=== PATIENT | male | born 1995 | race Asian ===

== ENCOUNTER 2017-07-25 17:15 | Emergency (ER) | payer MEDICAID ==
[~2017-07-25] VITALS: Ht 170.2 cm; Wt 54.4 kg
[~2017-07-25 17:15] MED LIST: DEPAKOTE125 MG PO; KLONOPIN2 MG PO
[2017-07-25 18:03] LABS: BASOPHILS % (AUTO) 1.8 % (0.0-2.0); EOSINOPHILS % (AUTO) 1.5 % (0.0-3.0); HEMATOCRIT 43.2 % (42.0-52.0); HEMOGLOBIN 13.9 G/DL (14.2-18.0); MEAN CORPUSCULAR VOLUME 96 FL (80-99); MONOCYTES % (AUTO) 8.5 % (1.0-10.0); NEUTROPHILS % (AUTO) 55.2 % (45.0-75.0); PLATELET COUNT 201 K/UL (150-450); RED BLOOD COUNT 4.49 M/UL (4.70-6.10); RED CELL DISTRIBUTION WIDTH 11.8 % (11.6-14.8)
[2017-07-25 18:09] LABS: ANION GAP 10 mmol/L (5-15); BLOOD UREA NITROGEN 14 mg/dL (7-18); CALCIUM 7.7 MG/DL (8.5-10.1); CARBON DIOXIDE 27 MMOL/L (21-32); CHLORIDE 106 MMOL/L (98-107); CREATININE 0.8 MG/DL (0.55-1.30); POTASSIUM 3.5 MMOL/L (3.5-5.1); SODIUM 143 MMOL/L (136-145)
[2017-07-25 18:14] LABS: ALANINE AMINOTRANSFERASE 48 U/L (12-78); ALBUMIN 3.6 G/DL (3.4-5.0); ALBUMIN/GLOBULIN RATIO 1.1 (1.0-2.7); ALKALINE PHOSPHATASE 92 U/L (46-116); ASPARTATE AMINO TRANSFERASE 25 U/L (15-37); BILIRUBIN,TOTAL 0.4 MG/DL (0.2-1.0)
[2017-07-25 19:00] VITALS: BP 120/72
--- NOTE | 2017-07-25 22:45 | Emergency Room Report ---
History of Present Illness General Chief Complaint: General Complaint Source: Patient, Family Member - mother, EMS Present Illness HPI The patient is a 22-year-old male with a stated history of depression presenting for thoughts of self harm. He is brought in by police department. They did not put him on a psychiatric hold. He states that he was having sat thoughts this afternoon and scratched his left forearm. He denies intent or suicidal ideation. He denies any pain. He states that he has a psychiatrist which he has not seen recently.He takes Clonopin and Depakote daily. He denies other symptoms including dizziness, blurred vision, chest pain, shortness of breath, suicidal ideation, homicidal ideation Allergies: Coded Allergies: No Known Allergies (Unverified , 06/24/12) Patient History Past Medical History: see triage record, psych hx Pertinent Family History: none Reviewed Nursing Documentation: PMH: Agreed, PSxH: Agreed Nursing Documentation-PMH Hx Asthma: Yes History Of Psychiatric Problem: Yes - bi-polar,depression,anxiety Review of Systems All Other Systems: negative except mentioned in HPI Physical Exam Vital Signs Date Time Temp Pulse Resp B/P (MAP) Pulse Ox O2 Delivery O2 Flow Rate FiO2 07/25/17 17:14 97.9 88 16 118/65 Room Air 07/25/17 19:00 97 Sp02 EP Interpretation: reviewed, normal General Appearance: no apparent distress, alert, GCS 15, non-toxic Head: normocephalic, atraumatic Eyes: bilateral eye normal inspection, bilateral eye PERRL ENT: hearing grossly normal, normal pharynx, no angioedema, normal voice Neck: full range of motion, supple/symm/no masses Respiratory: chest non-tender, lungs clear, normal breath sounds, speaking full sentences Cardiovascular #1: regular rate, rhythm, no edema Musculoskeletal: back normal, gait/station normal, normal range of motion Neurologic: alert, oriented x3, responsive, motor strength/tone normal, sensory intact, speech normal Psychiatric: judgement/insight normal, memory normal, mood/affect normal, no suicidal/homicidal ideation Suicide Risk Assessment: Suicidal Ideation: No Had intent to initiate attempt: No Pt's plan for suicide attempt: No Has means to complete attempt: No Skin: normal color, no rash, warm/dry, well hydrated, abrasions - L forearm Medical Decision Making PA Attestation Dr. Young is my supervising physician. Patient management was discussed with my supervising physician Diagnostic Impression: Primary Impression: Acute anxiety ER Course The patient is a 22-year-old male with a stated history of depression presenting for thoughts of self harm Differential diagnoses considered but not limited to suicidal ideation, homicidal ideation, depression, anxiety PE: NAD Patient denies suicidal ideation. He is relaxing on a chair. No distress. He is asking for food Blood work is unremarkable. Patient is medically cleared. His mother has now arrived states that the patient will be returning with her at home which is a safe area. He states that he would like to go home. I told them both the patient need to see his psychiatrist. Laboratory Tests Test 07/25/17 17:10 07/25/17 17:40 Urine Opiates Screen Negative (NEGATIVE) Urine Barbiturates Screen Negative (NEGATIVE) Phencyclidine (PCP) Screen Negative (NEGATIVE) Urine Amphetamines Screen Negative (NEGATIVE) Urine Benzodiazepines Screen Negative (NEGATIVE) Urine Cocaine Screen Negative (NEGATIVE) Urine Marijuana (THC) Screen Negative (NEGATIVE) White Blood Count 5.0 K/UL (4.8-10.8) Red Blood Count 4.49 M/UL (4.70-6.10) L Hemoglobin 13.9 G/DL (14.2-18.0) L Hematocrit 43.2 % (42.0-52.0) Mean Corpuscular Volume 96 FL (80-99) Mean Corpuscular Hemoglobin 30.9 PG (27.0-31.0) Mean Corpuscular Hemoglobin Concent 32.1 G/DL (32.0-36.0) Red Cell Distribution Width 11.8 % (11.6-14.8) Platelet Count 201 K/UL (150-450) Mean Platelet Volume 7.2 FL (6.5-10.1) Neutrophils (%) (Auto) 55.2 % (45.0-75.0) Lymphocytes (%) (Auto) 33.0 % (20.0-45.0) Monocytes (%) (Auto) 8.5 % (1.0-10.0) Eosinophils (%) (Auto) 1.5 % (0.0-3.0) Basophils (%) (Auto) 1.8 % (0.0-2.0) Sodium Level 143 MMOL/L (136-145) Potassium Level 3.5 MMOL/L (3.5-5.1) Chloride Level 106 MMOL/L (98-107) Carbon Dioxide Level 27 MMOL/L (21-32) Anion Gap 10 mmol/L (5-15) Blood Urea Nitrogen 14 mg/dL (7-18) Creatinine 0.8 MG/DL (0.55-1.30) Estimate Glomerular Filtration Rate > 60 mL/min (>60) Glucose Level 106 MG/DL (74-106) Calcium Level 7.7 MG/DL (8.5-10.1) L Total Bilirubin 0.4 MG/DL (0.2-1.0) Aspartate Amino Transferase (AST) 25 U/L (15-37) Alanine Aminotransferase (ALT) 48 U/L (12-78) Alkaline Phosphatase 92 U/L (46-116) Total Protein 6.8 G/DL (6.4-8.2) Albumin 3.6 G/DL (3.4-5.0) Globulin 3.2 g/dL Albumin/Globulin Ratio 1.1 (1.0-2.7) Salicylates Level 0.8 ug/mL (2.8-20) L Acetaminophen Level < 2 MCG/ML (10-30) L Serum Alcohol < 3 mg/dL Lab Results Impression unremarkable Last Vital Signs Date Time Temp Pulse Resp B/P (MAP) Pulse Ox O2 Delivery O2 Flow Rate FiO2 07/25/17 21:48 97.9 106 18 120/72 97 Room Air Status: improved Disposition: HOME, SELF-CARE Condition: Improved Referrals: [facility],REFERR[facility] (PCP) Patient Instructions: Panic Attacks Additional Instructions: I discussed my findings with the patient. All questions and concerns have been answered. Treatment and medication compliance have been addressed. Please followup with psychiatry as soon as possible. Return to ED if symptoms worsen, new symptoms arise, or if needed for any reason. Patient verbalized understanding of discharge instructions. GERBER SOUZA Jul 25, 2017 22:45
== END 2017-07-25 21:55 | disposition home or self-care (01) ==
LOC: EDBD 17:15 → EMR 18:00
DX: F41.9 Anxiety disorder, unspecified (principal); S50.812A Abrasion of left forearm, initial encounter; X78.9XXA Intentional self-harm by unspecified sharp object, initial encounter; Y92.9 Unspecified place or not applicable; F32.9 Major depressive disorder, single episode, unspecified; J45.909 Unspecified asthma, uncomplicated
CPT/HCPCS: 36415; 80053; 80307; 80329; 85025; 99284

== ENCOUNTER 2017-08-11 15:57 | Inpatient (IN) | payer MEDICAID ==
[2017-08-11] VITALS (11 sets, daily range): BP systolic 91–135; BP diastolic 36–80
[~2017-08-11] VITALS: Ht 170.2 cm; Wt 57.2 kg
[2017-08-11] MEDS ORDERED: Oxymetazoline 0.05% Na Spray 30ml NASAL ONE ×2 (16:05→16:15)
--- NOTE | 2017-08-11 16:27 | Emergency Room Report ---
History of Present Illness General Chief Complaint: Overdose Source: Family Member Present Illness HPI Patient is a 22-year-old male who presented after overdose on multiple psychiatric medications. Patient stated that he had taken overdose of mirtazapine as well as Depakote. The ingestion occurred approximately 30-40 minutes prior to arrival. The patient had prior history of similar episodes which eventually required intubation and ICU admission. The patient did not vomit prior to arrival. The patient presented with family member. Patient previous history of bipolar disorder Allergies: Coded Allergies: No Known Allergies (Unverified , 08/11/17) Patient History Reviewed Nursing Documentation: PMH: Agreed, PSxH: Agreed Nursing Documentation-PMH History Of Psychiatric Problem: Yes - schizoprenia Physical Exam Vital Signs Date Time Temp Pulse Resp B/P (MAP) Pulse Ox O2 Delivery O2 Flow Rate FiO2 08/11/17 15:58 97.3 71 16 122/72 100 Room Air Sp02 EP Interpretation: reviewed, normal General Appearance: normal inspection, well appearing, no apparent distress, alert, GCS 15, non-toxic Head: atraumatic ENT: normal ENT inspection, hearing grossly normal, normal voice Neck: normal inspection, full range of motion, supple, no bony tend Respiratory: normal inspection, lungs clear, normal breath sounds, no respiratory distress, no retraction, no wheezing Cardiovascular #1: regular rate, rhythm, no edema Gastrointestinal: normal inspection, normal bowel sounds, non tender, soft, no guarding, no hernia Genitourinary: no CVA tenderness Musculoskeletal: normal inspection, back normal, normal range of motion Neurologic: normal inspection, alert, oriented x3, responsive, plumber's assistant III-XII nml as tested, speech normal Psychiatric: normal inspection, mood/affect normal, anxious Skin: normal inspection, normal color, no rash Procedures Critical Care Time Critical Care Time Patient had a critical medical condition which untreated could potentially result in life or limb threatening injury. Total critical care time excluding procedures approximately 45 minutes. Medical Decision Making Diagnostic Impression: Primary Impression: Drug overdose Additional Impression: Bipolar disorder ER Course Patient presented after overdose. The differential diagnosis included wasn't limited to toxic ingestion, suicidal attempt, liver injury, coingestions among others.Because of complexity of patient's case laboratory testing and imaging studies were ordered. The patient was noted to have recent ingestion. And G- tube was placed and patient was lavaged with return of some pill fragments. The patient was given activated charcoal. He was started on GoLYTELY via NG tube. The patient was noted to have elevated Depakote level. The patient was noted to have previous suicide attempt. EKG interpreted by me showed sinus rhythm with rate of [address] or T wave changes. Poison control was contacted to assist in management of patient's arrival. They recommended repeat ammonia levels every 4 hours as well as further monitoring and supportive care. Dr. Kee was contacted for inpatient management due to complexity of medical condition. Labs Test 08/11/17 16:15 08/11/17 16:35 White Blood Count 6.0 K/UL (4.8-10.8) Red Blood Count 4.53 M/UL (4.70-6.10) Hemoglobin 14.5 G/DL (14.2-18.0) Hematocrit 43.5 % (42.0-52.0) Mean Corpuscular Volume 96 FL (80-99) Mean Corpuscular Hemoglobin 31.9 PG (27.0-31.0) Mean Corpuscular Hemoglobin Concent 33.3 G/DL (32.0-36.0) Red Cell Distribution Width 11.9 % (11.6-14.8) Platelet Count 190 K/UL (150-450) Mean Platelet Volume 9.0 FL (6.5-10.1) Neutrophils (%) (Auto) 48.5 % (45.0-75.0) Lymphocytes (%) (Auto) 38.7 % (20.0-45.0) Monocytes (%) (Auto) 9.5 % (1.0-10.0) Eosinophils (%) (Auto) 1.5 % (0.0-3.0) Basophils (%) (Auto) 1.8 % (0.0-2.0) Sodium Level 142 MMOL/L (136-145) Potassium Level 4.0 MMOL/L (3.5-5.1) Chloride Level 106 MMOL/L (98-107) Carbon Dioxide Level 25 MMOL/L (21-32) Anion Gap 11 mmol/L (5-15) Blood Urea Nitrogen 22 mg/dL (7-18) Creatinine 0.9 MG/DL (0.55-1.30) Estimat Glomerular Filtration Rate > 60 mL/min (>60) Glucose Level 92 MG/DL (74-106) Calcium Level 9.3 MG/DL (8.5-10.1) Total Bilirubin 0.2 MG/DL (0.2-1.0) Aspartate Amino Transf (AST/SGOT) 20 U/L (15-37) Alanine Aminotransferase (ALT/SGPT) 31 U/L (12-78) Alkaline Phosphatase 79 U/L (46-116) Ammonia 32 umol/L (11-32) Total Protein 6.5 G/DL (6.4-8.2) Albumin 3.6 G/DL (3.4-5.0) Globulin 2.9 g/dL Albumin/Globulin Ratio 1.2 (1.0-2.7) Salicylates Level 2.5 ug/mL (2.8-20) Acetaminophen Level < 10 MCG/ML (10-30) Valproic Acid (Depakene) Level 211 MCG/ML (50-100) Serum Alcohol < 3 mg/dL Urine Opiates Screen Negative (NEGATIVE) Urine Barbiturates Screen Negative (NEGATIVE) Phencyclidine (PCP) Screen Negative (NEGATIVE) Urine Amphetamines Screen Negative (NEGATIVE) Urine Benzodiazepines Screen Negative (NEGATIVE) Urine Cocaine Screen Negative (NEGATIVE) Urine Marijuana (THC) Screen Negative (NEGATIVE) EKG Diagnostic Results Rate: normal Rhythm: NSR ST Segments: no acute changes Rhythm Strip Diag. Results EP Interpretation: yes Rhythm: NSR, no PVC's, no ectopy Last Vital Signs Date Time Temp Pulse Resp B/P (MAP) Pulse Ox O2 Delivery O2 Flow Rate FiO2 08/11/17 15:58 97.3 71 16 122/72 100 Room Air Status: unchanged Disposition: ADMITTED INPATIENT Condition: Critical Referrals: NOT CHOSEN [facility]/,REFERRING (PCP) Blayne Morris Aug 11, 2017 16:27
[2017-08-11] MEDS ORDERED: Nulytely 4L NG ONE (16:30)
[2017-08-11] MEDS ORDERED: Activated Charcoal 50gm/240ml Btl ORAL ONE (16:30)
[2017-08-11] MEDS ORDERED: MIRTAZAPINE15 M3 ORAL (16:52)
[2017-08-11] MEDS ORDERED: DEPAKOTE ER500 MG ORAL (16:52)
[2017-08-11 16:58] LABS: ANION GAP 11 mmol/L (5-15); BLOOD UREA NITROGEN 22 mg/dL (7-18); CALCIUM 9.3 MG/DL (8.5-10.1); CARBON DIOXIDE 25 MMOL/L (21-32); CHLORIDE 106 MMOL/L (98-107); CREATININE 0.9 MG/DL (0.55-1.30); SODIUM 142 MMOL/L (136-145)
[2017-08-11] MEDS ORDERED: LORazepam Inj 2mg/ml 1ml IV ONE (17:00)
[2017-08-11 17:05] LABS: BASOPHILS % (AUTO) 1.8 % (0.0-2.0); EOSINOPHILS % (AUTO) 1.5 % (0.0-3.0); HEMATOCRIT 43.5 % (42.0-52.0); HEMOGLOBIN 14.5 G/DL (14.2-18.0); LYMPHOCYTES % (AUTO) 38.7 % (20.0-45.0); MEAN CORPUSCULAR VOLUME 96 FL (80-99); MONOCYTES % (AUTO) 9.5 % (1.0-10.0); NEUTROPHILS % (AUTO) 48.5 % (45.0-75.0); PLATELET COUNT 190 K/UL (150-450); RED BLOOD COUNT 4.53 M/UL (4.70-6.10); RED CELL DISTRIBUTION WIDTH 11.9 % (11.6-14.8)
[2017-08-11 17:12] LABS: ALANINE AMINOTRANSFERASE 31 U/L (12-78); ALBUMIN 3.6 G/DL (3.4-5.0); ALBUMIN/GLOBULIN RATIO 1.2 (1.0-2.7); ALKALINE PHOSPHATASE 79 U/L (46-116); ASPARTATE AMINO TRANSFERASE 20 U/L (15-37); BILIRUBIN,TOTAL 0.2 MG/DL (0.2-1.0)
[2017-08-11] MEDS ORDERED: Albuterol/Ipratropium 3ml neb HHN PRN (18:00)
[2017-08-11] MEDS ORDERED: Nitroglycerin Subl 0.4mg tab SL PRN (18:00)
[2017-08-11] MEDS: D5 1/2NS 1,000 ML IV SCH (21:16)
[2017-08-11 21:18] LABS: AMMONIA 40 umol/L (11-32)
[2017-08-11 21:20] LABS: ALANINE AMINOTRANSFERASE 37 U/L (12-78); ALBUMIN 3.8 G/DL (3.4-5.0); ALBUMIN/GLOBULIN RATIO 1.2 (1.0-2.7); ALKALINE PHOSPHATASE 70 U/L (46-116); ANION GAP 17 mmol/L (5-15); ASPARTATE AMINO TRANSFERASE 21 U/L (15-37); BILIRUBIN,TOTAL 0.2 MG/DL (0.2-1.0); BLOOD UREA NITROGEN 18 mg/dL (7-18); CALCIUM 8.6 MG/DL (8.5-10.1); CARBON DIOXIDE 21 MMOL/L (21-32); CHLORIDE 110 MMOL/L (98-107); CREATININE 1.1 MG/DL (0.55-1.30); POTASSIUM 3.8 MMOL/L (3.5-5.1); SODIUM 148 MMOL/L (136-145)
[2017-08-11] MEDS: Heparin 5000 units/ml inj SUBQ SCH (21:32)
[2017-08-12] VITALS (24 sets, daily range): BP systolic 93–136; BP diastolic 33–63
[2017-08-12 01:12] LABS: AMMONIA 44 umol/L (11-32)
[2017-08-12 04:51] LABS: HEMATOCRIT 41.3 % (42.0-52.0); HEMOGLOBIN 13.6 G/DL (14.2-18.0); MEAN CORPUSCULAR VOLUME 98 FL (80-99); PLATELET COUNT 95 K/UL (150-450); RED BLOOD COUNT 4.24 M/UL (4.70-6.10); RED CELL DISTRIBUTION WIDTH 12.3 % (11.6-14.8)
[2017-08-12 05:10] LABS: INR 1.1 (0.9-1.1)
[2017-08-12 05:18] LABS: AMMONIA 67 umol/L (11-32)
[2017-08-12 05:20] LABS: ALANINE AMINOTRANSFERASE 28 U/L (12-78); ALBUMIN 3.2 G/DL (3.4-5.0); ALKALINE PHOSPHATASE 51 U/L (46-116); ASPARTATE AMINO TRANSFERASE 22 U/L (15-37); BILIRUBIN,DIRECT 0.1 MG/DL (0.0-0.3); BILIRUBIN,TOTAL 0.3 MG/DL (0.2-1.0); PHOSPHORUS 3.6 MG/DL (2.5-4.9)
--- NOTE | 2017-08-12 07:46 | Pulmonolgy Critical Care Note ---
Critical Care - Asmt/Plan Assessment/Plan: ASSESSMENT drug OD ( on Depakote and Remeron) acute toxic encephalopathy 2 to drug OD Bipolar disorder thrombocytopenia elevated ammonia PLAN OF CARE ICU IVF serial ammonia, Lactulose x 1 lavage via NGT and then dc low PLT likely due to elevated Depakote level but will hold Heparin venous Duplex BLE, if negative - SCD patient able to protect airway close monitor ammonia and Depakote level supportive care SS eval psych eval can be transferred later to [facility] case discussed and evaluated by supervising physician Critical Care - Objective Last 24 Hour Vital Signs Date Time Temp Pulse Resp B/P (MAP) Pulse Ox O2 Delivery O2 Flow Rate FiO2 08/12/17 07:00 84 15 114/47 99 Room Air 08/12/17 06:00 84 14 128/34 99 Room Air 08/12/17 05:00 86 15 136/49 98 Room Air 08/12/17 04:00 94 08/12/17 04:00 99.0 90 17 129/63 98 Room Air 08/12/17 03:00 90 15 128/52 100 Room Air 08/12/17 02:00 87 16 126/42 100 Room Air 08/12/17 01:00 97 16 107/33 99 Room Air 08/12/17 00:00 97 08/12/17 00:00 99.0 98 15 93/47 99 Room Air 08/11/17 23:00 97 15 91/39 100 Room Air 08/11/17 22:00 105 15 104/36 99 Room Air 08/11/17 21:00 98.2 116 19 105/45 99 Room Air 08/11/17 21:00 111 08/11/17 21:00 99.0 111 16 110/80 99 Room Air 08/11/17 20:00 98.2 116 19 105/45 99 Room Air 08/11/17 19:00 122 19 100/43 99 Room Air 08/11/17 18:30 131 20 106/47 99 Room Air 08/11/17 18:00 109 26 134/42 98 Room Air 08/11/17 17:30 109 17 134/56 100 Room Air 08/11/17 17:00 98.5 118 18 132/80 99 Room Air 08/11/17 16:30 94 20 134/78 100 Room Air 08/11/17 16:28 108 20 08/11/17 16:08 97.9 76 16 135/72 100 Room Air 08/11/17 15:58 97.3 71 16 122/72 100 Room Air Status: awake Condition: improving HEENT: atraumatic, normocephalic Heart: HR/BP stable Abdomen: soft, non-tender, active bowel sounds Accucheck: 84 Critical Care - Subjective ROS Limited/Unobtainable: Yes Interval Events: awake, responsive, maintaining airway VSS ammonia elevated-67, Depakote level still high -184 but with small trend down PLT down to 95 Condition: critical IV Access: peripheral EKG Rhythm: Sinus Rhythm Fluids: D51/2 NS at 75 I&O: Intake and Output 08/11/17 08/12/17 19:00 07:00 Intake Total 1750 ml Output Total 700 ml Balance 1050 ml Intake IV Total 1750 ml Output Urine Total 700 ml # Voids 1 2 # Bowel Movements 4 Christa Means NP ([facility]) Aug 12, 2017 07:46
[2017-08-12] MEDS: Heparin 5000 units/ml inj SUBQ SCH ×2 (08:41→20:55)
[2017-08-12] MEDS: D5 1/2NS 1,000 ML IV SCH ×2 (08:45→22:08)
[2017-08-12] MEDS ORDERED: Lactulose 20gm/30ml UDC ORAL ONE (09:00)
[2017-08-12 11:26] LABS: AMMONIA 31 umol/L (11-32)
[2017-08-12 13:06] LABS: AMMONIA 51 umol/L (11-32)
[2017-08-12 17:24] LABS: AMMONIA 61 umol/L (11-32)
[2017-08-12 20:53] LABS: AMMONIA 43 umol/L (11-32)
[2017-08-13] VITALS (14 sets, daily range): BP systolic 86–124; BP diastolic 44–67
[2017-08-13 00:54] LABS: AMMONIA 54 umol/L (11-32)
[2017-08-13 04:43] LABS: BASOPHILS % (AUTO) 1.2 % (0.0-2.0); EOSINOPHILS % (AUTO) 2.6 % (0.0-3.0); HEMATOCRIT 36.8 % (42.0-52.0); HEMOGLOBIN 12.3 G/DL (14.2-18.0); LYMPHOCYTES % (AUTO) 46.6 % (20.0-45.0); MEAN CORPUSCULAR VOLUME 97 FL (80-99); MONOCYTES % (AUTO) 11.1 % (1.0-10.0); NEUTROPHILS % (AUTO) 38.5 % (45.0-75.0); PLATELET COUNT 118 K/UL (150-450); RED CELL DISTRIBUTION WIDTH 11.7 % (11.6-14.8); WHITE BLOOD COUNT 3.8 K/UL (4.8-10.8)
[2017-08-13 04:55] LABS: ANION GAP 8 mmol/L (5-15); BLOOD UREA NITROGEN 16 mg/dL (7-18); CALCIUM 8.3 MG/DL (8.5-10.1); CARBON DIOXIDE 24 MMOL/L (21-32); CHLORIDE 107 MMOL/L (98-107); CREATININE 0.8 MG/DL (0.55-1.30); POTASSIUM 3.4 MMOL/L (3.5-5.1); SODIUM 139 MMOL/L (136-145)
[2017-08-13 04:58] LABS: AMMONIA 56 umol/L (11-32)
[2017-08-13 08:45] LABS: AMMONIA 52 umol/L (11-32)
[2017-08-13] MEDS: Heparin 5000 units/ml inj SUBQ SCH (09:00)
--- NOTE | 2017-08-13 10:57 | History and Physical ---
History of Present Illness General Date patient seen: Aug 11, 2017 Reason for Hospitalization: Overdose Present Illness HPI 22-year-old male with history of bipolar disorder and suicide attempt in the past presented after overdose on multiple psychiatric medications. Patient stated that he had taken overdose of mirtazapine as well as Depakote. The ingestion occurred approximately 30-40 minutes prior to arrival to ER The patient had prior history of similar episodes which eventually required intubation and ICU admission. Pt had gastric lavage in ER. Poison control was contacted by ER physician and their recommendations were followed. He is admitted to ICU for further treatment. Allergies: Coded Allergies: No Known Allergies (Unverified , 06/24/12) Medication History Scheduled Clonazepam (Klonopin), Unknown Dose PO TWICE A DAY, (Reported) Divalproex Sodium (Depakote), Unknown Dose PO TWICE A DAY, (Reported) Divalproex Sodium* (Depakote Er*), 500 MG ORAL EVERY 12 HOURS, (Reported) Mirtazapine* (Mirtazapine*), 15 MG ORAL BEDTIME, (Reported) Patient History Healthcare decision maker Resuscitation status Full Code Advanced Directive on File Past Medical/Surgical History Past Medical/Surgical History: (1) Bipolar disorder Review of Systems Eye: Reports: no symptoms ENT: Reports: no symptoms All Other Systems: negative except mentioned in HPI Physical Exam General Appearance: WD/WN, mild distress HEENT: normocephalic, atraumatic Neck: non-tender, supple Respiratory/Chest: chest wall non-tender, normal breath sounds Cardiovascular/Chest: normal peripheral pulses, normal rate Abdomen: normal bowel sounds Genitourinary/Rectal: normal genital exam Extremities: normal range of motion Last 24 Hour Vital Signs Date Time Temp Pulse Resp B/P (MAP) Pulse Ox O2 Delivery O2 Flow Rate FiO2 08/13/17 10:00 61 15 124/65 100 Room Air 08/13/17 09:00 63 17 119/67 100 Room Air 08/13/17 08:00 67 08/13/17 08:00 98.5 66 16 95/58 100 Room Air 08/13/17 07:00 82 17 86/55 100 Room Air 08/13/17 06:00 86 17 98/55 100 Room Air 08/13/17 05:00 80 17 107/57 98 Room Air 08/13/17 04:00 76 08/13/17 04:00 98.3 71 16 124/58 99 Room Air 08/13/17 03:00 76 17 105/44 97 Room Air 08/13/17 02:00 80 17 105/49 97 Room Air 08/13/17 01:00 85 17 114/53 97 Room Air 08/13/17 00:00 98.7 76 17 109/54 100 Room Air 08/13/17 00:00 81 08/12/17 23:00 83 18 95/37 99 Room Air 08/12/17 22:00 87 18 93/38 99 Room Air 08/12/17 21:00 87 18 113/57 99 Room Air 08/12/17 20:00 98.3 84 16 107/52 100 Room Air 08/12/17 20:00 86 08/12/17 19:00 86 13 127/60 99 Room Air 08/12/17 18:00 88 15 122/50 99 Room Air 08/12/17 17:00 78 16 122/51 100 Room Air 08/12/17 16:00 98.3 76 11 121/52 100 Room Air 08/12/17 16:00 88 08/12/17 15:00 76 11 101/42 100 Room Air 08/12/17 14:00 75 14 104/43 100 Room Air 08/12/17 13:00 83 14 122/55 100 Room Air 08/12/17 12:00 82 08/12/17 12:00 97.7 71 14 107/47 100 Room Air 08/12/17 11:00 71 14 107/63 100 Room Air Intake and Output 08/12/17 08/13/17 19:00 07:00 Intake Total 1325 ml 1400 ml Output Total 430 ml 800 ml Balance 895 ml 600 ml Intake Oral 500 ml 500 ml IV Total 825 ml 900 ml Output Urine Total 430 ml 800 ml # Bowel Movements 8 2 Laboratory Tests Test 08/12/17 12:15 08/12/17 16:30 08/12/17 20:10 08/13/17 00:20 Ammonia 51 umol/L (11-32) H 61 umol/L (11-32) H 43 umol/L (11-32) H 54 umol/L (11-32) H Valproic Acid (Depakene) Level 93 MCG/ML (50-100) 65 MCG/ML (50-100) 45 MCG/ML (50-100) L 33 MCG/ML (50-100) L Test 08/13/17 04:00 08/13/17 07:50 White Blood Count 3.8 K/UL (4.8-10.8) L Red Blood Count 3.80 M/UL (4.70-6.10) L Hemoglobin 12.3 G/DL (14.2-18.0) L Hematocrit 36.8 % (42.0-52.0) L Mean Corpuscular Volume 97 FL (80-99) Mean Corpuscular Hemoglobin 32.3 PG (27.0-31.0) H Mean Corpuscular Hemoglobin Concent 33.3 G/DL (32.0-36.0) Red Cell Distribution Width 11.7 % (11.6-14.8) Platelet Count 118 K/UL (150-450) L Mean Platelet Volume 8.1 FL (6.5-10.1) Neutrophils (%) (Auto) 38.5 % (45.0-75.0) L Lymphocytes (%) (Auto) 46.6 % (20.0-45.0) H Monocytes (%) (Auto) 11.1 % (1.0-10.0) H Eosinophils (%) (Auto) 2.6 % (0.0-3.0) Basophils (%) (Auto) 1.2 % (0.0-2.0) Sodium Level 139 MMOL/L (136-145) Potassium Level 3.4 MMOL/L (3.5-5.1) L Chloride Level 107 MMOL/L (98-107) Carbon Dioxide Level 24 MMOL/L (21-32) Anion Gap 8 mmol/L (5-15) Blood Urea Nitrogen 16 mg/dL (7-18) Creatinine 0.8 MG/DL (0.55-1.30) Estimat Glomerular Filtration Rate > 60 mL/min (>60) Glucose Level 161 MG/DL (74-106) H Calcium Level 8.3 MG/DL (8.5-10.1) L Ammonia 56 umol/L (11-32) H 52 umol/L (11-32) H Valproic Acid (Depakene) Level 28 MCG/ML (50-100) L 23 MCG/ML (50-100) L Height (Feet): 5 Height (Inches): 7.00 Weight (Pounds): 126 Medications Current Medications Medications (Trade) Dose Ordered Sig/Lauren Route PRN Reason Start Time Stop Time Status Last Admin Dose Admin Acetaminophen (Tylenol) 650 mg Q4H PRN ORAL Fever (temp>100.5F) 08/11/17 18:00 09/10/17 17:59 Albuterol/ Ipratropium (Albuterol/ Ipratropium) 3 ml Q4H PRN HHN Shortness of Breath 08/11/17 18:00 08/16/17 17:59 Dextrose (Dextrose 50%) STAT PRN IV Hypoglycemia 08/11/17 18:00 09/10/17 17:59 Dextrose/Sodium Chloride 1,000 ml @ 75 mls/hr [id number] IV 08/11/17 19:45 09/10/17 19:44 08/12/17 22:08 Heparin Sodium (Porcine) (Heparin 5000 units/ml) 5,000 units EVERY 12 HOURS SUBQ 08/11/17 21:00 09/10/17 20:59 08/11/17 21:32 Nicotine (Nicoderm) 1 patch Q24H TDERMAL 08/13/17 10:30 09/12/17 10:29 Nitroglycerin (Ntg) 0.4 mg Q5M PRN SL Prn Chest Pain 08/11/17 18:00 09/10/17 17:59 Ondansetron HCl (Zofran) 4 mg Q6H PRN IVP Nausea & Vomiting 08/11/17 18:00 09/10/17 17:59 08/12/17 04:52 Assessment/Plan Problem List: (1) Drug overdose ICD Codes: T50.901A - Poisoning by unspecified drugs, medicaments and biological substances, accidental (unintentional), initial encounter SNOMED: 88862402 (2) Bipolar disorder ICD Codes: F31.9 - Bipolar disorder, unspecified SNOMED: 85863456 (3) Suicidal ideation ICD Codes: R45.851 - Suicidal ideations SNOMED: 5179102, 490710558 Assessment/Plan iv fluids check electrolytes psych evaluation follow Poison control recommendations. symptomatic treatment. SHAMA ECHEVERRIA Aug 13, 2017 10:57
--- NOTE | 2017-08-13 10:59 | Pulmonolgy Critical Care Note ---
Critical Care - Asmt/Plan Problems: (1) Drug overdose (2) Bipolar disorder (3) Suicidal ideation Respiratory: monitor respiratory rate, adjust FIO2 Cardiac: d/c alarm security or surveillance monitor Renal: F/U I&O, decrease IV fluid Infectious Disease: check cultures Gastrointestinal: continue feedings/current rate Endocrine: monitor blood sugar Hematologic: monitor H/H Affect: PRN ativan Prophylaxis: Protonix Notes Reviewed: cardio Discussed with: nurses Critical Care - Objective Last 24 Hour Vital Signs Date Time Temp Pulse Resp B/P (MAP) Pulse Ox O2 Delivery O2 Flow Rate FiO2 08/13/17 10:00 61 15 124/65 100 Room Air 08/13/17 09:00 63 17 119/67 100 Room Air 08/13/17 08:00 67 08/13/17 08:00 98.5 66 16 95/58 100 Room Air 08/13/17 07:00 82 17 86/55 100 Room Air 08/13/17 06:00 86 17 98/55 100 Room Air 08/13/17 05:00 80 17 107/57 98 Room Air 08/13/17 04:00 76 08/13/17 04:00 98.3 71 16 124/58 99 Room Air 08/13/17 03:00 76 17 105/44 97 Room Air 08/13/17 02:00 80 17 105/49 97 Room Air 08/13/17 01:00 85 17 114/53 97 Room Air 08/13/17 00:00 98.7 76 17 109/54 100 Room Air 08/13/17 00:00 81 08/12/17 23:00 83 18 95/37 99 Room Air 08/12/17 22:00 87 18 93/38 99 Room Air 08/12/17 21:00 87 18 113/57 99 Room Air 08/12/17 20:00 98.3 84 16 107/52 100 Room Air 08/12/17 20:00 86 08/12/17 19:00 86 13 127/60 99 Room Air 08/12/17 18:00 88 15 122/50 99 Room Air 08/12/17 17:00 78 16 122/51 100 Room Air 08/12/17 16:00 98.3 76 11 121/52 100 Room Air 08/12/17 16:00 88 08/12/17 15:00 76 11 101/42 100 Room Air 08/12/17 14:00 75 14 104/43 100 Room Air 08/12/17 13:00 83 14 122/55 100 Room Air 08/12/17 12:00 82 08/12/17 12:00 97.7 71 14 107/47 100 Room Air 08/12/17 11:00 71 14 107/63 100 Room Air Status: awake Condition: critical Neck: full ROM Lungs: chest wall tender Heart: HR/BP unstable, regular Abdomen: active bowel sounds Extremities: no C/C/E, edema Accucheck: 84 Critical Care - Subjective ROS Limited/Unobtainable: No ICU Day: 3 Condition: critical Vent Support Mode: AC Fluids: d5w 75 cc.hour I&O: Intake and Output 08/12/17 08/13/17 19:00 07:00 Intake Total 1325 ml 1400 ml Output Total 430 ml 800 ml Balance 895 ml 600 ml Intake Oral 500 ml 500 ml IV Total 825 ml 900 ml Output Urine Total 430 ml 800 ml # Bowel Movements 8 2 CXR: MO Labs: Laboratory Tests Test 08/12/17 12:15 08/12/17 16:30 08/12/17 20:10 08/13/17 00:20 Ammonia 51 umol/L (11-32) H 61 umol/L (11-32) H 43 umol/L (11-32) H 54 umol/L (11-32) H Valproic Acid (Depakene) Level 93 MCG/ML (50-100) 65 MCG/ML (50-100) 45 MCG/ML (50-100) L 33 MCG/ML (50-100) L Test 08/13/17 04:00 08/13/17 07:50 White Blood Count 3.8 K/UL (4.8-10.8) L Red Blood Count 3.80 M/UL (4.70-6.10) L Hemoglobin 12.3 G/DL (14.2-18.0) L Hematocrit 36.8 % (42.0-52.0) L Mean Corpuscular Volume 97 FL (80-99) Mean Corpuscular Hemoglobin 32.3 PG (27.0-31.0) H Mean Corpuscular Hemoglobin Concent 33.3 G/DL (32.0-36.0) Red Cell Distribution Width 11.7 % (11.6-14.8) Platelet Count 118 K/UL (150-450) L Mean Platelet Volume 8.1 FL (6.5-10.1) Neutrophils (%) (Auto) 38.5 % (45.0-75.0) L Lymphocytes (%) (Auto) 46.6 % (20.0-45.0) H Monocytes (%) (Auto) 11.1 % (1.0-10.0) H Eosinophils (%) (Auto) 2.6 % (0.0-3.0) Basophils (%) (Auto) 1.2 % (0.0-2.0) Sodium Level 139 MMOL/L (136-145) Potassium Level 3.4 MMOL/L (3.5-5.1) L Chloride Level 107 MMOL/L (98-107) Carbon Dioxide Level 24 MMOL/L (21-32) Anion Gap 8 mmol/L (5-15) Blood Urea Nitrogen 16 mg/dL (7-18) Creatinine 0.8 MG/DL (0.55-1.30) Estimat Glomerular Filtration Rate > 60 mL/min (>60) Glucose Level 161 MG/DL (74-106) H Calcium Level 8.3 MG/DL (8.5-10.1) L Ammonia 56 umol/L (11-32) H 52 umol/L (11-32) H Valproic Acid (Depakene) Level 28 MCG/ML (50-100) L 23 MCG/ML (50-100) L SHAMA ECHEVERRIA Aug 13, 2017 10:59
[2017-08-13 12:28] LABS: AMMONIA 46 umol/L (11-32)
--- NOTE | 2017-08-13 13:26 | Diagnostic Imaging Report ---
Indication: Dyspnea Technique: XRAY Chest 1v Comparison: None Findings: Heart size and mediastinal contours are within normal limits. There is mild hyperinflation. There is no focal consolidation, pneumothorax or pleural effusion. Osseous structures demonstrate no acute abnormality. Impression: Mild hyperinflation. No focal consolidation.
[2017-08-13] MEDS ORDERED: D5 1/2NS 1000ml IV ONE (13:44)
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
--- NOTE | 2017-08-14 00:53 | General Progress Note ---
Assessment/Plan Status: stable Assessment/Plan the pt is not at imminent dts encourage to take meds to decrease AH Subjective Date patient seen: Aug 13, 2017 Neurologic/Psychiatric: Reports: anxiety, depressed, emotional problems Allergies: Coded Allergies: No Known Allergies (Unverified , 06/24/12) Subjective the pt is calm and more engaged. the pt denies si. the mom wants to take him home. called the psychiatrist and left a msg Objective Last 24 Hour Vital Signs Date Time Temp Pulse Resp B/P (MAP) Pulse Ox O2 Delivery O2 Flow Rate FiO2 08/13/17 13:00 75 11 123/60 100 Room Air 08/13/17 12:00 98.5 77 13 114/59 100 Room Air 08/13/17 12:00 70 08/13/17 11:00 75 15 123/62 100 Room Air 08/13/17 10:00 61 15 124/65 100 Room Air 08/13/17 09:00 63 17 119/67 100 Room Air 08/13/17 08:00 67 08/13/17 08:00 98.5 66 16 95/58 100 Room Air 08/13/17 07:00 82 17 86/55 100 Room Air 08/13/17 06:00 86 17 98/55 100 Room Air 08/13/17 05:00 80 17 107/57 98 Room Air 08/13/17 04:00 76 08/13/17 04:00 98.3 71 16 124/58 99 Room Air 08/13/17 03:00 76 17 105/44 97 Room Air 08/13/17 02:00 80 17 105/49 97 Room Air 08/13/17 01:00 85 17 114/53 97 Room Air Intake and Output 08/13/17 08/14/17 19:00 07:00 Intake Total 325 ml Output Total 600 ml Balance -275 ml Intake Oral 325 ml Output Urine Total 600 ml # Bowel Movements 4 Laboratory Tests 08/13/17 04:00: White Blood Count 3.8L, Red Blood Count 3.80L, Hemoglobin 12.3L, Hematocrit 36.8L, Mean Corpuscular Volume 97, Mean Corpuscular Hemoglobin 32.3H, Mean Corpuscular Hemoglobin Concent 33.3, Red Cell Distribution Width 11.7, Platelet Count 118L, Mean Platelet Volume 8.1, Neutrophils (%) (Auto) 38.5L, Lymphocytes (%) (Auto) 46.6H, Monocytes (%) (Auto) 11.1H, Eosinophils (%) (Auto) 2.6, Basophils (%) (Auto) 1.2, Sodium Level 139, Potassium Level 3.4L, Chloride Level 107, Carbon Dioxide Level 24, Anion Gap 8, Blood Urea Nitrogen 16, Creatinine 0.8, Estimat Glomerular Filtration Rate > 60, Glucose Level 161H, Calcium Level 8.3L, Ammonia 56H, Valproic Acid (Depakene) Level 28L 08/13/17 07:50: Ammonia 52H, Valproic Acid (Depakene) Level 23L 08/13/17 11:55: Ammonia 46H, Valproic Acid (Depakene) Level 23L Height (Feet): 5 Height (Inches): 7.00 Weight (Pounds): 126 Aisha Benavides M.D. Aug 14, 2017 00:53
--- NOTE | 2017-08-14 13:50 | Discharge Summary ---
Discharge Summary Hospital Course Date of Admission Aug 11, 2017 at 16:54 Date of Discharge Aug 13, 2017 at 13:45 Admitting Diagnosis depakote and mirtazipine HPI Elton Laboy is a 22 year old male who was admitted on Aug 11, 2017 at 16:54 for Overdose Depakote And Mirtzaipine Hospital Course dc summary #[id number] Discharge Condition Upon Discharge: stable Discharge Disposition Patient was discharged to Home (01) Discharge Diagnoses: Miguelangel ([facility]),Christa BELL Aug 14, 2017 13:50
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
--- NOTE | 2017-08-22 17:25 | Cardiology Report ---
APPROVED REPORT EKG Measurement Heart [id number] Sinus tachycardia Prolonged QT Abnormal ECG
--- NOTE | 2017-08-22 17:34 | Cardiology Report ---
APPROVED REPORT EKG Measurement Heart [id number] Normal sinus rhythm Early repolarization Normal ECG
== END 2017-08-13 13:45 | disposition home or self-care (01) | DRG 812 ==
LOC: EDBD 16:08 → EMR 16:08 → ICU 16:54 → MERGE 16:54 → EDBEDREQ 17:29
DX: T42.6X2A Poisoning by other antiepileptic and sedative-hypnotic drugs, intentional self-harm, initial encounter (principal); G92 Toxic encephalopathy; D69.6 Thrombocytopenia, unspecified; F31.89 Other bipolar disorder; Y92.009 Unspecified place in unspecified non-institutional (private) residence as the place of occurrence of the external cause; T43.022A Poisoning by tetracyclic antidepressants, intentional self-harm, initial encounter; Y92.9 Unspecified place or not applicable; T43.02 Poisoning by, adverse effect of and underdosing of tetracyclic antidepressants
CPT/HCPCS: 36415; 71045; 80048; 80053; 80076; 80164; 80307; 80329; 82140; 84100; 85007; 85025; 85610; 85730; 87081; 93005; 93970; 99291; J2405

== ENCOUNTER 2019-06-13 13:59 | Emergency (ER) | payer MEDICAID, OTHER ==
[~2019-06-13] VITALS: Ht 170.2 cm; Wt 61.2 kg
[~2019-06-13 13:59] MED LIST changes: +DEPAKOTE ER500 MG ORAL; +MIRTAZAPINE15 M3 ORAL
--- NOTE | 2019-06-13 14:10 | NUR ---
ED Nurse Note: SECURITY AT BEDSIDE. ANABELLE BRAND NOTIFIED PT'S CONDITION AND REQUESTED SITTER. PT IS UNDRESSING AT THIS TIME.
[2019-06-13 14:20] VITALS: BP 105/69
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
--- NOTE | 2019-06-13 14:21 | NUR ---
ED Nurse Note: A/OX4. PT DENIES SI AT THIS TIME. CALM AND COOPERATIVE.
[2019-06-13] MEDS ORDERED: LORazepam 1mg tab ORAL ONE (14:45)
[2019-06-13] MEDS: Depakote 500mg tab ORAL ONE ×2 (15:05→15:31)
--- NOTE | 2019-06-13 15:10 | NUR ---
ED Nurse Note: PT IS IN THE ROOM, RESTING. PROVIDED WATER. INCREASED OBSERVATION AND SAFETY MEASURE APPLIED.
[2019-06-13 15:17] LABS: BASOPHILS % (AUTO) 0.9 % (0.0-2.0); HEMATOCRIT 44.1 % (42.0-52.0); HEMOGLOBIN 15.9 G/DL (14.2-18.0); LYMPHOCYTES % (AUTO) 17.4 % (20.0-45.0); MEAN CORPUSCULAR VOLUME 90 FL (80-99); MONOCYTES % (AUTO) 8.7 % (1.0-10.0); NEUTROPHILS % (AUTO) 72.9 % (45.0-75.0); PLATELET COUNT 254 K/UL (150-450); RED BLOOD COUNT 4.89 M/UL (4.70-6.10); RED CELL DISTRIBUTION WIDTH 10.9 % (11.6-14.8); WHITE BLOOD COUNT 9.1 K/UL (4.8-10.8)
[2019-06-13 15:20] LABS: ANION GAP 14 mmol/L (5-15); BLOOD UREA NITROGEN 20 mg/dL (7-18); CALCIUM 9.7 MG/DL (8.5-10.1); CARBON DIOXIDE 23 MMOL/L (21-32); CHLORIDE 107 MMOL/L (98-107); CREATININE 1.2 MG/DL (0.55-1.30); POTASSIUM 4.3 MMOL/L (3.5-5.1); SODIUM 144 MMOL/L (136-145)
[2019-06-13 15:25] LABS: ALANINE AMINOTRANSFERASE 23 U/L (12-78); ALBUMIN 4.5 G/DL (3.4-5.0); ALBUMIN/GLOBULIN RATIO 1.5 (1.0-2.7); ALKALINE PHOSPHATASE 69 U/L (46-116); ASPARTATE AMINO TRANSFERASE 23 U/L (15-37); BILIRUBIN,TOTAL 0.6 MG/DL (0.2-1.0)
--- NOTE | 2019-06-13 15:30 | NUR ---
ED Nurse Note: MOTHER, THADDEUS WEST,
--- NOTE | 2019-06-13 15:40 | NUR ---
ED Nurse Note: PT DENIES HI/SI AT THIS TIME AND WANTS TO GO HOME. ERMD NOTIFIED. PER ERMD, WAITING FOR LAB RESULT TO COME BACK. EDUCATED PT, PT VERBALIZED UNDERSTANDING. SOCKS AND BLANKETS PROVIED TO PT.
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
--- NOTE | 2019-06-13 16:10 | NUR ---
ED Nurse Note: RN CAME BACK TO ROOM, PT NO LONGER IN THE ROOM. PT ELOPED OUT OF ED WITH GOWN, SOCKS AND GLASSES. ANABELLE PATRICIO, SUNDAY, AND SHEREEN, DIRECTOR MADE AWARE. SITA EMT CALLING [employer] RIGHT NOW.
--- NOTE | 2019-06-13 16:19 | NUR ---
ED Nurse Note: THADDEUS, MOTHER, WAS INFORMED THAT PT ELOPED WITH HOSPITAL GOWN AND HIS BELONGINGS ARE IN ED.
[2019-06-13 16:40] VITALS: BP 105/69
--- NOTE | 2019-06-13 16:56 | NUR ---
ED Nurse Note: SPOKE WITH MILLICENT KEENAN #[id number]
--- NOTE | 2019-06-13 17:22 | NUR ---
ED Nurse Note: ROYA [id number] AND SHLOMO [id number] TALKING TO PT'S MOTHER. ALL BELONGINGS GIVEN TO MOTHER.
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
== END 2019-06-13 16:40 | disposition left against medical advice (07) ==
LOC: EMR 14:55
DX: F25.9 Schizoaffective disorder, unspecified (principal); S60.222A Contusion of left hand, initial encounter; J45.909 Unspecified asthma, uncomplicated; W50.0XXA Accidental hit or strike by another person, initial encounter; Y93.89 Activity, other specified; Y92.017 Garden or yard in single-family (private) house as the place of occurrence of the external cause
CPT/HCPCS: 36415; 73130; 80053; 80164; 80307; 85025; G0480; G0481; Z7502; 99284